=== PATIENT | female | born 1970 | race African-American/Black ===

== ENCOUNTER 2019-01-03 23:35 | Emergency (ER) | payer OTHER ==
[~2019-01-03] VITALS: Ht 167.6 cm; Wt 65.8 kg
[~2019-01-03 23:35] MED LIST: ATORVASTATIN CA40 MG; BETAMETHASONE D45 GM TP; FLONASE 0.05%50 MCG NASAL; HYCET 7.5 MG-3473 ML PO; JANUVIA100 MG PO; KEFLEX500 MG PO; LANTUS SQ; LIDOCAINE VISC100 M1 MM; LOPRESSOR25; METFORMIN HCL500 MG PO; NOVOLOG100 UNIT/1; NOVOLOG100 UNIT/1 SUBQ; OXYCODONE-ACET1 EACH PO; SIMVASTATIN40 MG PO; VENTOLIN HFA 1818 GM INH; VICTOZA0.6 MG/0.1 SUBQ; ZOFRAN ODT4 MG PO
[2019-01-04] MEDS ORDERED: FLUOCINOLONE AC15 GM TOP (00:19)
[2019-01-04 00:32] VITALS: BP 138/72
== END 2019-01-04 00:33 | disposition home or self-care (01) ==
LOC: M.ERS 23:35
DX: L25.9 Unspecified contact dermatitis, unspecified cause (principal); E11.9 Type 2 diabetes mellitus without complications; E78.00 Pure hypercholesterolemia, unspecified; Z88.8 Allergy status to other drugs, medicaments and biological substances